=== PATIENT | male | born 1990 | race Caucasian/White ===

== ENCOUNTER 2017-04-21 13:02 | Observation (INO) | payer OTHER ==
[~2017-04-21] VITALS: Ht 152.4 cm; Wt 82.0 kg
[2017-04-22 00:05] VITALS: BP 128/87
[2017-04-22 06:44] VITALS: BP 116/70
[2017-04-22 08:48] VITALS: BP 135/87
[2017-04-22 09:31] LABS: HEMATOCRIT 40.4 % (39.0-50.0); HEMOGLOBIN 14.1 g/dl (14.0-18.0); IMMATURE GRANULOCYTES 0.4 % (0.0-1.0); MEAN CELL VOLUME 92.9 fL CALC (80.0-100.0); MEAN CORPUSCULAR HGB 32.4 pG CALC (26.0-32.0); MEAN CORPUSCULAR HGB CONC 34.9 g/L CALC (32.0-36.0); NEUT# 5.97 thou/uL (1.82-7.42); RED BLOOD COUNT 4.35 mill/uL (4.70-6.10); RED CELL DISTRI WIDTH 11.4 % (11.5-15.5)
[2017-04-22 09:49] LABS: ANION GAP 16 (6-22 (CALC)); BUN 8 mg/dL (9-20); BUN/CREATININE RATIO 10 (12-20 (CALC)); CALCIUM 9.5 mg/dL (8.4-10.2); CARBON DIOXIDE 27 mmol/l (22-30); CHLORIDE 107 mmol/l (95-108); CREATININE 0.8 mg/dL (0.7-1.3); GFR > 60 ML/MIN (>=60 (CALC)); GFR FOR AFR.AMER. > 60 ML/MIN (>=60 (CALC)); GLUCOSE 118 mg/dL (75-110); POTASSIUM 4.5 mmol/l (3.5-5.1); SODIUM 144 mmol/l (137-146)
[2017-04-22 16:04] VITALS: BP 129/81
[2017-04-22 19:07] VITALS: BP 134/82
[2017-04-23 04:00] VITALS: BP 124/69
[2017-04-23 05:57] LABS: URINE BILIRUBIN - DIPSTICK NEGATIVE (NEGATIVE); URINE BLOOD DIPSTICK NEGATIVE (NEGATIVE); URINE CLARITY CLEAR; URINE COLOR YELLOW; URINE GLUCOSE - DIPSTICK NEGATIVE (NEGATIVE); URINE KETONE NEGATIVE (NEGATIVE); URINE LEUK ESTERASE NEGATIVE (NEGATIVE); URINE NITRITE - DIPSTICK NEGATIVE (Negative); URINE PH 6.5 (4.5-8.0); URINE PROTEIN - DIPSTICK NEGATIVE (NEG-TRACE); URINE SPECIFIC GRAVITY 1.015; URINE UROBILINOGEN - DIPSTICK 0.2 E.U./dL (0.2)
[2017-04-23 07:54] VITALS: BP 149/83
[2017-04-23] MEDS ORDERED: MOTRIN800 MG PO (11:20)
== END 2017-04-23 11:45 | DRG 200 ==
LOC: ED 13:02 → ED-I 15:13 → ED 16:50 → MS2 16:51
PROVIDERS: Nurse Practitioner Family; ADMIT Internal Medicine; ATTEND Internal Medicine
DX: S27.0XXA Traumatic pneumothorax, initial encounter (principal); S21.132A Puncture wound without foreign body of left front wall of thorax without penetration into thoracic cavity, initial encounter; S21.239A Puncture wound without foreign body of unspecified back wall of thorax without penetration into thoracic cavity, initial encounter; I10 Essential (primary) hypertension; S01.93XA Puncture wound without foreign body of unspecified part of head, initial encounter; X99.8XXA Assault by other sharp object, initial encounter; Y92.149 Unspecified place in prison as the place of occurrence of the external cause